=== PATIENT | female | born 1960 | race Caucasian/White ===

== ENCOUNTER 2016-12-27 12:49 | Outpatient (CLI) | payer OTHER ==
[2016-12-27] MEDS ORDERED: IOPAMIDOL-300 100 ML VIAL IVP ONE (13:13)
== END 2016-12-27 12:50 | disposition home or self-care (01) ==
DX: M54.2 Cervicalgia (principal); R20.2 Paresthesia of skin; D49.2 Neoplasm of unspecified behavior of bone, soft tissue, and skin
CPT/HCPCS: 70491; Q9967

== ENCOUNTER 2017-04-28 10:12 | Outpatient (CLI) | payer OTHER ==
--- NOTE | 2017-05-01 15:35 | Mammography Report ---
DIGITAL SCREENING MAMMOGRAM: 04/28/2017 CLINICAL INDICATION: A 56-year-old, for screening. COMPARISON: 12/2015, 11/2015, 11/2014, 11/2013, 11/2012, 04/2012, 10/2011, 09/2011, 09/2010. TECHNIQUE: Routine CC and MLO projections were obtained of the breasts. FINDINGS: The breasts again demonstrate heterogeneously dense fibroglandular parenchyma bilaterally. Coarse, typically benign calcifications are present. A biopsy marker in the right lower outer centra l breast is stable. No suspicious masses, clustered microcalcifications, or regions of architectural distortion are identified. IMPRESSION: BENIGN FINDINGS. RECOMMENDATION: ROUTINE ANNUAL SCREENING UNLESS OTHERWISE CLINICALLY INDICATED. BIRADS CATEGORY 2-BENIGN FINDINGS. STANDARD QUALIFYING STATEMENTS 1. This examination was reviewed with the aid of Computer-Aided Detection (CAD). 2. A negative or benign imaging report should not delay biopsy if clinically suspicious findings are present. Consider surgical consultation if warranted. More than 5% of cancers are not identified by i maging. 3. Dense breasts may obscure an underlying neoplasm. JOB #: [id number] EXT JOB #:[id number]
== END 2017-04-28 10:13 | disposition home or self-care (01) ==
LOC: DI 10:12
PROVIDERS: ATTEND Physician Assistant Medical
DX: Z12.31 Encounter for screening mammogram for malignant neoplasm of breast (principal)
CPT/HCPCS: 77067

== ENCOUNTER 2017-12-22 12:52 | Outpatient (CLI) | payer BC ==
--- NOTE | 2017-12-22 14:35 | DEXA Report ---
DEXA SCAN: 12/22/2017 CLINICAL INDICATION: Postmenopausal. TECHNIQUE: Dual energy x-ray absorptiometry (DXA) was performed on a [employer] system. Regions measured are the AP spine, femoral neck, and, if needed, forearm. COMPARISON: None. In accordance with the International Society for Clinical Densitometry (ISCD) guidelines, data from previous exams may be reanalyzed using current recommendations and techniques. This is done to allow a more accurate basis for comparison with the current study. FINDINGS Data for the lumbar spine is as follows: REGION BMD (g/cm/cm) T-SCORE Z-SCORE L1 0.962 -1.4 -0.2 L2 1.079 -1.0 0.2 L3 1.107 -0.8 0.4 L4 0.971 -1.9 -0.7 TOTAL 1.031 -1.2 0.0 NOTE: All evaluable vertebrae are used for classification. Data for the hip is as follows: REGION BMD (g/cm/cm) T-SCORE Z-SCORE Neck 0.727 -2.2 -1.0 TOTAL 0.820 -1.5 -0.6 NOTE: The femoral neck or total proximal femur, whichever is lowest, is used for classification. IMPRESSION: WHO CLASSIFICATION BASED ON THE INTERNATIONAL REFERENCE STANDARD IS OSTEOPENIA. FRACTURE RISK IS INCREASED. RECOMMENDATION: Patients with diagnosis of osteoporosis or osteopenia should have regular bone mineral density assessment. For those eligible for Medicare, routine testing is allowed once every 2 years. Testing frequency can be increased for patients who have rapidly progressing disease or for those who are receiving medical therapy to restore bone mass. COMMENT World Health Organization (WHO) definitions for osteoporosis and osteopenia: NORMAL BMD: T-score at 1.0 or higher, fracture risk is low. OSTEOPENIA BMD: T-score between 1.0 and -2.5, fracture risk is increased. OSTEOPOROSIS BMD: T-score at 2.5 or lower, fracture risk high. National Osteoporosis Foundation recommends: 1. Obtain adequate dietary calcium (at least 1200 mg per day) and vitamin D (400 -800 international units per day). 2. Participate, as appropriate, in regular weightbearing and muscle- strengthening exercise. 3. Avoid tobacco use and reduce alcohol and caffeine intake. 4. For more detailed information see the website at www.NOF.org. TD: 12/22/2017 13:56 MTDD
== END 2017-12-22 12:53 | disposition home or self-care (01) ==
LOC: DI 12:52
PROVIDERS: ATTEND Physician Assistant Medical
DX: M85.89 Other specified disorders of bone density and structure, multiple sites (principal)
CPT/HCPCS: 77080

== ENCOUNTER 2018-06-22 07:38 | Outpatient (CLI) | payer BC ==
--- NOTE | 2018-06-25 13:43 | Mammography Report ---
Reason: SCREENING MAMMO Procedure Date: 06/22/2018 Accession Number: [id number] / [id number] Procedure: SUKUMAR - Screening Mammo Dig Bilat CPT Code: FULL RESULT: EXAM: Screening Mammo Dig Bilat DATE: 06/22/2018 8:18 AM CLINICAL HISTORY: 57-year-old female with history of right breast biopsy with benign results. TECHNIQUE: Bilateral CC and MLO views were obtained. COMPARISON: 04/28/2017, 01/01/2016, 12/13/2015, 12/02/2014. FINDINGS: The breasts demonstrate heterogeneously dense fibroglandular parenchyma bilaterally. Typically benign coarse calcifications are identified in the right breast. A biopsy marker is seen in the right breast. No suspicious masses, clustered microcalcifications, or regions of architectural distortion are identified. IMPRESSION: Benign findings RECOMMENDATION: Routine annual screening unless otherwise clinically indicated. BIRADS CATEGORY 2: Benign findings STANDARD QUALIFYING STATEMENTS: 1. This examination was not reviewed with the aid of Computer-Aided Detection (CAD). 2. A negative or benign imaging report should not delay biopsy if clinically suspicious findings are present. Consider surgical consultation if warrented. More than 5% of cancers are not identified by imaging. 3. Dense breasts may obscure an underlying neoplasm. 4. This examination was reviewed without the aid of 3D breast imaging (tomosynthesis).
== END 2018-06-22 07:39 | disposition home or self-care (01) ==
LOC: DI 07:38
DX: Z12.31 Encounter for screening mammogram for malignant neoplasm of breast (principal)
CPT/HCPCS: 77067

== ENCOUNTER 2019-01-03 11:30 | Day surgery (SDC) | payer BC ==
[2019-01-03] MEDS ORDERED: LACTATED RINGERS 1,000 ML IV ONE (11:36)
[2019-01-03] MEDS ORDERED: fentaNYL 250 MCG/5 ML VIAL IVP ONE (12:48)
[2019-01-03] MEDS ORDERED: MIDAZOLAM 2 MG/2 ML VIAL IVP ONE (12:48)
[2019-01-03 13:47] VITALS: BP 103/72
== END 2019-01-03 11:31 | disposition home or self-care (01) ==
LOC: SDS 11:30
PROVIDERS: ATTEND Internal Medicine Gastroenterology
PROC: 0DJD8ZZ Inspection of Lower Intestinal Tract, Via Natural or Artificial Opening Endoscopic (ICD-10-PCS; principal; 2019-01-03 12:30)
DX: Z12.11 Encounter for screening for malignant neoplasm of colon (principal); Z80.0 Family history of malignant neoplasm of digestive organs
CPT/HCPCS: 45378; J3010; J7120

== ENCOUNTER 2019-08-30 13:52 | Outpatient (CLI) | payer BC ==
--- NOTE | 2019-08-31 16:51 | XRAY Report ---
Reason: LEFT LUMBAR RADICULOPATHY Procedure Date: 08/30/2019 Accession Number: [id number] / [id number] Procedure: WCP - Lumbar Spine 2 View CPT Code: Final Report FULL RESULT: EXAM: LUMBOSACRAL SPINE RADIOGRAPHY EXAM DATE: 08/30/2019 01:52 PM. CLINICAL HISTORY: LEFT LUMBAR RADICULOPATHY. Low back pain. COMPARISONS: None. TECHNIQUE: 3 views. FINDINGS: Alignment: Minimal dextroconvex lumbar curvature. No spondylolisthesis. Bones: Five [id number] lumbar vertebral bodies are present. No fractures or bone lesions. Disks: Mild multilevel degenerative disk disease. Facets: Grossly unremarkable. Sacroiliac Joints: Unremarkable. Soft Tissues: Normal. The visualized bowel gas pattern is normal. IMPRESSION: 1. Minimal dextroconvex lumbar curvature and mild multilevel degenerative disk disease. RADIA
== END 2019-08-30 23:59 | disposition home or self-care (01) ==
LOC: DI.WCP 13:52
PROVIDERS: ATTEND Physician Assistant Medical
DX: M51.16 Intervertebral disc disorders with radiculopathy, lumbar region (principal); M43.8X6 Other specified deforming dorsopathies, lumbar region
CPT/HCPCS: 72100

== ENCOUNTER 2019-09-27 14:45 | Outpatient (CLI) | payer BC ==
--- NOTE | 2019-10-02 13:40 | Mammography Report ---
Reason: ROUTINE MAMMO Procedure Date: 09/27/2019 Accession Number: [id number] / [id number] Procedure: SUKUMAR - Screening Mammo w/Pradip CPT Code: Final Report FULL RESULT: EXAM: Screening Mammo w/Rpadip DATE: 09/27/2019 3:19 PM CLINICAL HISTORY: The patient is an asymptomatic 59-year-old female. No reported personal nor family history. Prior benign breast biopsy. TECHNIQUE: (B) - Bilateral CC and MLO views were obtained. COMPARISON: 06/22/2018, 04/28/2017, 12/15/2015, 12/02/2014, 11/29/2013, 11/23/2012, 10/07/2011, 10/01/2010 PARENCHYMAL PATTERN: (D) - The breasts demonstrate heterogeneously dense fibroglandular parenchyma bilaterally. FINDINGS: RIGHT BREAST: There are two new partially obscured masses in the upper outer posterior position. Recommend targeted diagnostic evaluation. The remainder the parenchymal pattern is stable. A microclip is in place at the site of benign biopsy. In the lower outer quadrant. LEFT BREAST: The pattern of nodular asymmetry is stable given positional variation. There are no suspicious masses, calcifications, or areas of distortion. IMPRESSION: RIGHT BREAST: INCOMPLETE, BI-RADS 0 LEFT BREAST: BENIGN, BI-RADS 2 RECOMMENDATION: (ADDMU) - Additional views using both mammography and ultrasound recommended - right breast. BI-RADS CATEGORY: (0) - Incomplete Examination - need additional evaluation. STANDARD QUALIFYING STATEMENTS: A negative or benign imaging report should not preclude biopsy if clinically suspicious findings are present. Dense breasts may obscure an underlying neoplasm. This examination was reviewed with the aid of 3D breast imaging (tomosynthesis).
== END 2019-09-27 14:46 | disposition home or self-care (01) ==
LOC: DI 14:45
DX: Z12.31 Encounter for screening mammogram for malignant neoplasm of breast (principal); R92.8 Other abnormal and inconclusive findings on diagnostic imaging of breast
CPT/HCPCS: 77063; 77067

== ENCOUNTER 2019-11-27 09:20 | Outpatient (CLI) | payer BC ==
[2019-11-27] MEDS ORDERED: BUFFERED LIDOCAINE 10 ML SYRINGE ONE (09:30)
--- NOTE | 2019-11-27 14:15 | Mammography Report ---
Reason: ABNORMAL MAMMOGRAM Procedure Date: 11/27/2019 Accession Number: [id number] / [id number] Procedure: SUKUMAR - Diagnostic Dig RT CPT Code: Final Report FULL RESULT: PROCEDURE: Ultrasound-guided needle biopsy right breast mass. CLINICAL DATA: Targeted mass measuring 1.1 and 1.0 cm in the right upper outer quadrant with smooth margins in the 11 o'clock axis of the right breast 4 cm from the nipple and 5 cm from the nipple respectively. Informed consent was obtained. Using standard aseptic technique, both 1% buffered was injected into the breast for local anesthesia. A small yojana was made in the skin with a #11 blade. A 12-gauge netomat vacuum-assisted device was used to obtain 3 specimens. The same was repeated for the second site. A specialized biopsy marker clip was placed into the biopsy cavity under ultrasound guidance at both sites. The patient was taken to separate mammography machine and a two-view digital mammography was performed to verify the clip placement and any complications. The mammography showed concordant clip positions. The wound was dressed and ice applied. The patient was observed for approximately 15 minutes, then was discharged from diagnostic imaging Department in good condition following instructions on wound care and obtaining biopsy results. The patient is scheduled to receive the biopsy results from the referring physician. The tissue was sent for histologic analysis. IMPRESSION: Ultrasound-guided biopsy of the right breast, 2 sites. AN ADDENDUM WILL BE MADE TO THIS REPORT WHEN PATHOLOGY IS REVIEWED TO ESTABLISH CONCORDANCE.
[2019-11-27] MEDS ORDERED: BUFFERED LIDOCAINE 10 ML SYRINGE IU ONE (15:14)
== END 2019-11-27 09:21 | disposition home or self-care (01) ==
LOC: DI 09:20
PROVIDERS: ATTEND Physician Assistant Medical
DX: C50.411 Malignant neoplasm of upper-outer quadrant of right female breast (principal); Z17.0 Estrogen receptor positive status [ER+]
CPT/HCPCS: 19083

== ENCOUNTER 2020-08-05 14:39 | Outpatient (CLI) | payer BC ==
--- NOTE | 2020-08-05 17:05 | XRAY Report ---
PROCEDURE: Hip w/Pelvis 2-3V LT INDICATIONS: ARTHRITIS TECHNIQUE: AP pelvis with lateral view(s) of the bilateral hip(s). COMPARISON: None. FINDINGS: Bones: No fractures or dislocations. Pelvic ring appears intact. No suspicious bony lesions. Mild bilateral hip joint periarticular osteophyte formation. Soft tissues: The visualized bowel gas pattern is normal. No suspicious soft tissue calcifications. IMPRESSION: Bilateral hip osteoarthritis. No acute fracture. No osseous lesion. If symptoms and/or c linical suspicion for pathology continue, further assessment with repeat plain films, or advanced cammie ging (e.g., CT, MRI, or bone scan) is recommended for further assessment.. Reviewed by: Jarod Fields MD on 08/05/2020 5:04 PM PST Approved by: Jarod Fields MD on 08/05/2020 5:04 PM PST Station ID: [id number]
--- NOTE | 2020-08-05 17:05 | XRAY Report ---
PROCEDURE: Foot 3 View LT INDICATIONS: ARTHRITIS TECHNIQUE: 3 views of the foot were acquired. COMPARISON: None FINDINGS: Bones: No fractures or dislocations. No suspicious bony lesions. Soft tissues: No tibiotalar joint effusion. Achilles tendon appears normal. IMPRESSION: No acute fracture. No osseous lesion. If symptoms and/or clinical suspicion for pathology continue, f urther assessment with repeat plain films, or advanced imaging (e.g., CT, MRI, or bone scan) is recom mended for further assessment. Reviewed by: Jarod Fields MD on 08/05/2020 5:03 PM [facility] Approved by: Jarod Fields MD on 08/05/2020 5:03 PM PST Station ID: [id number]
== END 2020-08-05 14:40 | disposition home or self-care (01) ==
LOC: DI 14:39
PROVIDERS: ATTEND Internal Medicine
DX: M16.0 Bilateral primary osteoarthritis of hip (principal); C50.911 Malignant neoplasm of unspecified site of right female breast

== ENCOUNTER 2021-10-27 09:25 | Outpatient (CLI) | payer BC ==
[2021-10-27 12:11] LABS: BASOPHILS % (AUTO) 0.4 %; EOSINOPHILS # (AUTO) 0.1 10^3/uL (0.0-0.7); EOSINOPHILS % (AUTO) 1.9 %; HCT - HEMATOCRIT 39.6 % (37.0-47.0); HGB - HEMOGLOBIN 13.1 g/dL (12.0-16.0); LYMPHOCYTES # (AUTO) 0.9 10^3/uL (1.5-3.5); LYMPHOCYTES % (AUTO) 19.4 %; MEAN CORPUSCULAR HEMOGLOBIN 30.3 pg (27.0-31.0); MEAN CORPUSCULAR HGB CONC 33.1 g/dL (32.0-36.0); MEAN CORPUSCULAR VOLUME 91.7 fL (81.0-99.0); MEAN PLATELET VOLUME 11.9 fL (7.9-10.8); MONOCYTES # (AUTO) 0.3 10^3/uL (0.0-1.0); MONOCYTES % (AUTO) 6.7 %; NEUTROPHILS # (AUTO) 3.3 10^3/uL (1.5-6.6); NEUTROPHILS % (AUTO) 71.4 %; PLT - PLATELET COUNT 234 10^3/uL (130-450); RED BLOOD COUNT 4.32 10^6/uL (4.20-5.40); WHITE BLOOD COUNT 4.6 x10^3/uL (4.8-10.8)
[2021-10-27 12:54] LABS: ALBUMIN 4.4 g/dL (3.2-5.5); ALBUMIN/GLOBULIN RATIO 1.6 (1.0-2.2); ALKALINE PHOSPHATASE 54 IU/L (42-121); ALT ALANINE AMINOTRANSFERASE 19 IU/L (10-60); AST ASPARTATE AMINOTRANSFERASE 25 IU/L (10-42); BILIRUBIN,TOTAL 0.9 mg/dL (0.2-1.0); BUN - BLOOD UREA NITROGEN 14 mg/dL (6-20); CALCIUM 9.5 mg/dL (8.5-10.3); CARBON DIOXIDE - CO2 27 mmol/L (21-32); CHLORIDE 102 mmol/L (101-111); CHOL/HDL RATIO 3.6 (<4.4); CHOLESTEROL 253 mg/dL; CREATININE 0.8 mg/dL (0.4-1.0); GFR - MDRD 72 (>89); GLUCOSE 99 mg/dL (70-100); HDL CHOLESTEROL 71 mg/dL; LDL CHOLESTEROL,CALCULATED 160 mg/dL; LDL/HDL RATIO 2.3 (<4.4); LIPASE 47 U/L (22-51); POTASSIUM 4.3 mmol/L (3.5-5.0); SODIUM 138 mmol/L (135-145); TOTAL PROTEIN 7.2 g/dL (6.7-8.2); TRIGLYCERIDES 110 mg/dL; VLDL CHOLESTEROL 22 mg/dL
[2021-10-27 12:55] LABS: THYROID STIMULATING HORMONE 1.45 uIU/mL (0.34-5.60)
== END 2021-10-27 09:26 | disposition home or self-care (01) ==
LOC: LAB.N 09:25
PROVIDERS: ATTEND Physician Assistant Medical
DX: Z00.00 Encounter for general adult medical examination without abnormal findings (principal); R10.11 Right upper quadrant pain
CPT/HCPCS: 36415; 80053; 80061; 83690; 83721; 84443; 85025

== ENCOUNTER 2021-12-08 10:06 | Outpatient (CLI) | payer BC ==
--- NOTE | 2021-12-08 16:34 | XRAY Report ---
PROCEDURE: Ribs w/PA Chest RT INDICATIONS: R SIDED RIB PX TECHNIQUE: 3 views of the right ribs were acquired, along with a single view chest. COMPARISON: Chest radiograph dated 08/11/2014 FINDINGS: Surgical changes and devices: Postsurgical changes project over the right chest and axilla. Bones and chest wall: No acute fractures or dislocations. Specifically, no acute osseous abnormaliti es identified at the patient directed area of concern marked by skin BB which projects near the media l aspect of the lower right ribs at approximately the 12th rib. No suspicious bony lesions. Overlyin g soft tissues appear unremarkable. Lungs and pleura: No pleural effusions or pneumothorax. Lungs appear clear. Mediastinum: Mediastinal contours appear normal. Heart size is normal. IMPRESSION: Chest without acute cardiopulmonary abnormalities. No radiographic abnormalities identified over the area of medial right chest wall pain. Reviewed by: Trevor Saenz MD on 12/08/2021 4:33 PM PDT Approved by: Trevor Saenz MD on 12/08/2021 4:33 PM PDT Station ID: [id number]
== END 2021-12-08 10:07 | disposition home or self-care (01) ==
LOC: DI.N 10:06
PROVIDERS: ATTEND Physician Assistant Medical
DX: R07.81 Pleurodynia (principal)

== ENCOUNTER 2021-12-27 06:49 | Outpatient (CLI) | payer BC ==
--- NOTE | 2021-12-27 13:42 | Ultrasound Report ---
PROCEDURE: Abdomen Limited INDICATIONS: ABDOMINAL PAIN, RUQ TECHNIQUE: Real-time scanning was performed of the abdominal and retroperitoneal organs, with image documentatio n. COMPARISON: None. FINDINGS: Liver: Liver is normal in size. There is a focus of decreased echogenicity measuring 6 x 6 x 7 mm. H epatic calcifications are present. Gallbladder: Gallbladder demonstrates multiple foci of nonmobile echogenicity the largest measuring 4 mm. Wall thickness is normal measuring 1.7 mm. Biliary ducts: Intrahepatic bile ducts are non-dilated. Extrahepatic bile duct caliber measures 3.1 mm. Normal is 6-7 mm or less in diameter, or 10 mm or less post-cholecystectomy. Pancreas: Visualized portions of the pancreas are sonographically normal. Kidneys: Right kidney measures 11.3 cm long. No hydronephrosis. Nonobstructing foci of increased ec hogenicity are present. No solid masses. Simple right renal cysts are noted. Aorta: Visualized aorta is normal in caliber at less than 3 cm. Iliacs: Proximal common iliac arteries are normal in caliber at less than 2.5 cm. IVC: Intrahepatic inferior vena cava is patent. Miscellaneous: No free abdominal fluid. IMPRESSION: Hepatic and renal cysts. Nonmobile foci of gallbladder echogenicity suggestive of polyps versus adherent stones. Reviewed by: Briseida Patel MD on 12/27/2021 1:41 PM PDT Approved by: Briseida Patel MD on 12/27/2021 1:41 PM PDT Station ID: [id number]
== END 2021-12-27 06:50 | disposition home or self-care (01) ==
LOC: DI 06:49
PROVIDERS: ATTEND Physician Assistant Medical
DX: K76.89 Other specified diseases of liver (principal); N28.1 Cyst of kidney, acquired

== ENCOUNTER 2022-09-12 10:06 | Outpatient (CLI) | payer BC ==
--- NOTE | 2022-09-12 13:38 | XRAY Report ---
PROCEDURE: Chest 2 View X-Ray INDICATIONS: CHEST PRESSURE, LEFT TECHNIQUE: 2 views of the chest were acquired. COMPARISON: 12/08/2021 FINDINGS: Surgical changes and devices: Stable postsurgical changes projecting over the right breast and right axilla.. Lungs and pleura: No pleural effusions or pneumothorax. Lungs are clear. Mediastinum: Mediastinal contours are normal. Heart size is normal. Bones and chest wall: No suspicious bony abnormalities. Soft tissues appear unremarkable. IMPRESSION: Chest without acute cardiopulmonary abnormalities or focal airspace disease. Reviewed by: Trevor Saenz MD on 09/12/2022 1:37 PM PST Approved by: Trevor Saenz MD on 09/12/2022 1:37 PM PST Station ID: [id number]
== END 2022-09-12 10:07 | disposition home or self-care (01) ==
LOC: DI 10:06
PROVIDERS: ATTEND Physician Assistant
DX: R07.89 Other chest pain (principal)
CPT/HCPCS: 36415; 85379

== ENCOUNTER 2022-11-03 07:38 | Outpatient (CLI) | payer BC ==
[2022-11-03 11:45] LABS: BASOPHILS % (AUTO) 0.9 %; EOSINOPHILS # (AUTO) 0.1 10^3/uL (0.0-0.7); EOSINOPHILS % (AUTO) 2.7 %; HCT - HEMATOCRIT 39.8 % (37.0-47.0); HGB - HEMOGLOBIN 12.6 g/dL (12.0-16.0); LYMPHOCYTES % (AUTO) 29.4 %; MEAN CORPUSCULAR HEMOGLOBIN 29.8 pg (27.0-31.0); MEAN CORPUSCULAR HGB CONC 31.7 g/dL (32.0-36.0); MEAN CORPUSCULAR VOLUME 94.1 fL (81.0-99.0); MEAN PLATELET VOLUME 12.2 fL (7.9-10.8); MONOCYTES # (AUTO) 0.2 10^3/uL (0.0-1.0); MONOCYTES % (AUTO) 7.3 %; NEUTROPHILS % (AUTO) 59.7 %; PLT - PLATELET COUNT 206 10^3/uL (130-450); RED BLOOD COUNT 4.23 10^6/uL (4.20-5.40); WHITE BLOOD COUNT 3.3 x10^3/uL (4.8-10.8)
[2022-11-03 12:33] LABS: THYROID STIMULATING HORMONE 1.76 uIU/mL (0.34-5.60)
[2022-11-03 12:37] LABS: ALBUMIN/GLOBULIN RATIO 1.5 (1.0-2.2); ALKALINE PHOSPHATASE 37 IU/L (42-121); ALT ALANINE AMINOTRANSFERASE 16 IU/L (10-60); AST ASPARTATE AMINOTRANSFERASE 22 IU/L (10-42); BILIRUBIN,TOTAL 0.6 mg/dL (0.2-1.0); BUN - BLOOD UREA NITROGEN 26 mg/dL (6-20); CALCIUM 9.5 mg/dL (8.5-10.3); CARBON DIOXIDE - CO2 26 mmol/L (21-32); CHLORIDE 107 mmol/L (101-111); CHOL/HDL RATIO 2.4 (<4.4); CHOLESTEROL 174 mg/dL; CREATININE 0.8 mg/dL (0.4-1.0); GFR - MDRD 72 (>89); GLUCOSE 88 mg/dL (70-100); HDL CHOLESTEROL 72 mg/dL; LDL CHOLESTEROL,CALCULATED 91 mg/dL; LDL/HDL RATIO 1.3 (<4.4); POTASSIUM 4.7 mmol/L (3.5-5.0); SODIUM 141 mmol/L (135-145); TOTAL PROTEIN 6.6 g/dL (6.7-8.2); TRIGLYCERIDES 56 mg/dL; VLDL CHOLESTEROL 11 mg/dL
== END 2022-11-03 07:39 | disposition home or self-care (01) ==
LOC: LAB.N 07:38
PROVIDERS: ATTEND Physician Assistant Medical
DX: Z00.00 Encounter for general adult medical examination without abnormal findings (principal); E03.9 Hypothyroidism, unspecified
CPT/HCPCS: 36415; 80053; 80061; 83721; 84443; 85025

== ENCOUNTER 2023-11-01 15:40 | Outpatient (CLI) | payer MEDICARE, BC ==
[2023-11-01 17:45] LABS: BASOPHILS % (AUTO) 0.7 %; EOSINOPHILS % (AUTO) 0.6 %; HCT - HEMATOCRIT 39.7 % (37.0-47.0); HGB - HEMOGLOBIN 13.1 g/dL (12.0-16.0); LYMPHOCYTES # (AUTO) 1.5 10^3/uL (1.5-3.5); MEAN CORPUSCULAR HEMOGLOBIN 30.3 pg (27.0-31.0); MEAN CORPUSCULAR VOLUME 91.7 fL (81.0-99.0); MONOCYTES # (AUTO) 0.3 10^3/uL (0.0-1.0); MONOCYTES % (AUTO) 5.7 %; NEUTROPHILS # (AUTO) 3.5 10^3/uL (1.5-6.6); NEUTROPHILS % (AUTO) 64.8 %; PLT - PLATELET COUNT 217 10^3/uL (130-450); RED BLOOD COUNT 4.33 10^6/uL (4.20-5.40); RED CELL DISTRIBUTION WIDTH 12.9 % (12.0-15.0); WHITE BLOOD COUNT 5.4 x10^3/uL (4.8-10.8)
[2023-11-01 18:26] LABS: ALBUMIN 4.4 g/dL (3.2-5.5); ALBUMIN/GLOBULIN RATIO 1.9 (1.0-2.2); BILIRUBIN,TOTAL 0.5 mg/dL (0.2-1.0); CALCIUM 9.3 mg/dL (8.5-10.3); CREATININE 0.9 mg/dL (0.6-1.3); POTASSIUM 4.3 mmol/L (3.5-4.5); TOTAL PROTEIN 6.7 g/dL (6.4-8.9)
== END 2023-11-01 15:41 | disposition home or self-care (01) ==
LOC: LAB.N 15:40
PROVIDERS: ATTEND Physician Assistant Medical
DX: K82.4 Cholesterolosis of gallbladder (principal); R10.11 Right upper quadrant pain
CPT/HCPCS: 36415; 80053; 83690; 85025

== ENCOUNTER 2024-05-01 09:14 | Outpatient (CLI) | payer MEDICARE, BC ==
[2024-05-01 10:01] LABS: THYROID STIMULATING HORMONE 1.55 uIU/mL (0.34-5.60)
[2024-05-01 10:54] LABS: CHOL/HDL RATIO 2.6 (<4.4); CHOLESTEROL 167 mg/dL; HDL CHOLESTEROL 64 mg/dL; LDL CHOLESTEROL,CALCULATED 81 mg/dL; LDL/HDL RATIO 1.3 (<4.4); TRIGLYCERIDES 109 mg/dL; VLDL CHOLESTEROL 22 mg/dL
== END 2024-05-01 09:15 | disposition home or self-care (01) ==
LOC: LAB 09:14
PROVIDERS: ATTEND Physician Assistant Medical
DX: Z00.00 Encounter for general adult medical examination without abnormal findings (principal); E03.9 Hypothyroidism, unspecified
CPT/HCPCS: 36415; 80061; 83721; 84443